=== PATIENT | male | born 1985 | race Caucasian/White ===

== ENCOUNTER 2022-04-17 23:48 | Emergency (ER) | payer MEDICARE, OTHER ==
[~2022-04-17] VITALS: Ht 177.8 cm; Wt 109.3 kg
--- NOTE | 2022-04-18 00:04 | NUR ---
TO ER BED 11. BIBRA 889 FROM HOME C/O DIZZINESS X 3 WEEKS. PT ON MECLIZINE. NO RELIEF. AAOX4. AMBULATORY. CONNECTED TO MONITOR. NOT IN RESPIRATORY DISTRESS. AWAITING MD FREEDMAN
[2022-04-18] MEDS ORDERED: MECLIZINE HCL 25 MG TABLET ONE (00:09)
--- NOTE | 2022-04-18 00:12 | NUR ---
LAB AT BEDSIDE
--- NOTE | 2022-04-18 00:26 | NUR ---
URINE SAMPLE COLLECTED AND SENT TO LAB
[2022-04-18 00:27] LABS: BASOPHILS # (AUTO) 0.1 K/uL (0.0-0.2); BASOPHILS % (AUTO) 0.5 % (0.0-2.0); EOSINOPHILS % (AUTO) 2.3 % (0.0-6.0); HEMATOCRIT 46 % (39-51); HEMOGLOBIN 16.1 g/dL (13.5-17.5); LYMPHOCYTES # (AUTO) 4.2 K/uL (0.8-4.8); LYMPHOCYTES % (AUTO) 34.9 % (20.0-44.0); MEAN CORPUSCULAR HGB CONC 35 g/dl (31.0-36.0); MEAN CORPUSCULAR VOLUME 90 fL (80-96); MONOCYTES # (AUTO) 0.7 K/uL (0.1-1.30); MONOCYTES % (AUTO) 5.6 % (2.0-12.0); NEUTROPHILS # (AUTO) 6.8 K/uL (1.8-8.9); NEUTROPHILS % (AUTO) 56.7 % (43.0-81.0); PLATELET COUNT (AUTO) 228 K/uL (150-450); RED BLOOD CELL COUNT(AUTO) 5.14 MIL/uL (4.5-6.0)
[2022-04-18] MEDS ORDERED: MECLIZINE HCL 12.5 MG TABLET PO ONE (00:30)
[2022-04-18 00:56] LABS: ALBUMIN 3.8 g/dL (3.4-5.0); BILIRUBIN,DIRECT 0.1 mg/dL (0.0-0.2); BILIRUBIN,TOTAL 0.5 mg/dL (0.2-1.0); POTASSIUM 3.6 mmol/L (3.5-5.1); TOTAL PROTEIN, SERUM 7.8 g/dL (6.4-8.2)
[2022-04-18 01:10] LABS: CALCIUM, SERUM 9.1 mg/dL (8.5-10.1)
[2022-04-18 01:18] LABS: BILIRUBIN,URINE NEGATIVE (NEGATIVE); COLOR,URINE YELLOW (YELLOW); LEUKOCYTE ESTERASE ,URINE NEGATIVE (NEGATIVE); NITRITE, URINE NEGATIVE (NEGATIVE); PROTEIN,URINE NEGATIVE (NEGATIVE); UGLUCOSE NEGATIVE (NEGATIVE); UROBILINOGEN,URINE 0.2 EU/dL (0.2)
--- NOTE | 2022-04-18 02:55 | NUR ---
called statrad for CT read
[2022-04-18 03:11] VITALS: BP 130/80
--- NOTE | 2022-04-18 03:11 | NUR ---
Patient discharged to home in stable condition. Written and verbal after care instructions given. Patient verbalizes understanding of instruction.
== END 2022-04-18 03:12 | disposition home or self-care (01) ==
LOC: ER 23:52
DX: R42 Dizziness and giddiness (principal); F32.A Depression, unspecified; F41.9 Anxiety disorder, unspecified; F17.200 Nicotine dependence, unspecified, uncomplicated
CPT/HCPCS: 36415; 70450; 80048; 80076; 81003; 82962; 85025; 85730; 99284; J8597